=== PATIENT | female | born 1995 | race African-American/Black ===

== ENCOUNTER 2016-08-19 23:40 | Emergency (ER) | payer OTHER ==
[2016-08-19 23:54] LABS: INFLUENZA A POS (NEG); INFLUENZA B NEG (NEG)
== END 2016-08-20 00:10 | disposition home or self-care (01) ==
LOC: CFTX 23:40
PROVIDERS: Student in an Organized Health Care Education/Training Program
DX: J10.1 Influenza due to other identified influenza virus with other respiratory manifestations (principal)
CPT/HCPCS: 87651; 87804; 99282